=== PATIENT | male | born 1970 | race Caucasian/White ===

== ENCOUNTER → 2017-10-16 | Outpatient (CLI) | payer OTHER ==
--- NOTE | 2017-10-16 10:46 | XR ---
EXAMINATION TYPE: XR foot limited RT DATE OF EXAM: 10/16/2017 CLINICAL HISTORY: Right foot pain worse in first toe. TECHNIQUE: Frontal and lateral images of the right foot are obtained. COMPARISON: None FINDINGS: There is no acute fracture/dislocation evident in the right foot. There is valgus position ing second DIP joint. There is mild to moderate joint space loss with mild peripheral osteophytes at first metatarsal phalangeal joint. The overlying soft tissue appears unremarkable. IMPRESSION: As above.
== END | disposition home or self-care (01) ==
LOC: RADXRMAIN 09:56
PROVIDERS: ATTEND Midwife
DX: M25.774 Osteophyte, right foot (principal); M25.871 Other specified joint disorders, right ankle and foot
CPT/HCPCS: 80061; 84550

== ENCOUNTER 2018-04-04 08:01 | Day surgery (SDC) | payer BC, OTHER ==
[2018-04-02 12:48] VITALS: BMI 30.1
[~2018-04-04 08:01] MED LIST: LACTATED RINGERS 1,000 ML IV SCH; LIDOCAINE 1% 20 ML VIAL (10MG/ML) FOR IV START INTRADERMA PRN
--- NOTE | 2018-04-04 08:10 | P.GSHP ---
History of Present Illness H&P Date: 04/04/18 CHIEF COMPLAINT: Colon screen HISTORY OF PRESENT ILLNESS: The patient is a 48-year-old male who presents for colon screen. Lower endoscopy was offered for further evaluation and management. PAST MEDICAL HISTORY: Please see list. PAST SURGICAL HISTORY: Please see list. MEDICATIONS: Please see list. ALLERGIES: Please see list. SOCIAL HISTORY: No illicit drug use FAMILY HISTORY: No reports of Crohn disease or ulcerative colitis. REVIEW OF ORGAN SYSTEMS: CONSTITUTIONAL: No reports of fevers or chills. PHYSICAL EXAM: VITAL SIGNS: Stable GENERAL: Well-developed pleasant in no acute distress. HEENT: No scleral icterus. Extraocular movements grossly intact. Moist buccal mucosa. NECK: Supple without lymphadenopathy. CHEST: Unlabored respirations. Equal bilateral excursions. CARDIOVASCULAR: Regular rate and rhythm. Distal 2+ pulses. ABDOMEN: Soft, nontender, nondistended. MUSCULOSKELETAL: No clubbing, cyanosis, or edema. ASSESSMENT: 1. Colon screen. PLAN: 1. Recommend proceeding with a lower endoscopy Past Medical History Past Medical History: Hyperlipidemia, Prostate Disorder History of Any Multi-Drug Resistant Organisms: None Reported Past Surgical History: No Surgical Hx Reported Additional Past Surgical History / Comment(s): colonoscopy Past Anesthesia/Blood Transfusion Reactions: No Reported Reaction, Family History of Problems w/ Anesthesia Additional Past Anesthesia/Blood Transfusion Reaction / Comment(s): mother-ponv Smoking Status: Never smoker - Past Family History Father Family Medical History: Deep Vein Thrombosis (DVT) Medications and Allergies Home Medications Medication Instructions Recorded Confirmed Type Atorvastatin [Lipitor] 10 mg PO HS 04/02/18 04/02/18 History Ibuprofen [Motrin] 400 mg PO Q6HR PRN 04/02/18 04/02/18 History Tamsulosin [Flomax] 0.4 mg PO HS 04/02/18 04/02/18 History Allergies Allergy/AdvReac Type Severity Reaction Status Date / Time No Known Allergies Allergy Verified 04/02/18 12:41
[2018-04-04 08:21] VITALS: RESP 16; TEMP 98.4
[2018-04-04] MEDS ORDERED: PROPOFOL 10 MG/ML 20 ML VIAL IV ONE (09:02)
--- NOTE | 2018-04-04 09:27 | P.PCN ---
Date of Procedure: 04/04/18 Description of Procedure: PREOPERATIVE DIAGNOSIS: Colonoscopy screening, high risk screening Personal history of colon polyps POSTOPERATIVE DIAGNOSIS: Colonoscopy screening, high risk screening Personal history of colon polyps Diverticulosis, scattered. OPERATION: Colonoscopy to the ileocecal valve and appendiceal orifice. SURGEON: Mira Morales MD. ANESTHESIA: MAC. INDICATIONS: The patient is a 48-year-old female who presents for colonoscopy screening. He has personal history of colon polyps. Benefits and risks were described and informed consent was obtained. DESCRIPTION OF PROCEDURE: The patient had undergone Gatorade, MiraLAX and Dulcolax prep. He had been brought into the operating room and laid in the left lateral decubitus position. After adequate intravenous sedation, the rectum was examined with 2% lidocaine jelly. No external hemorrhoids were encountered. The rectal tone was within normal limits. No lesions were palpated in the rectal vault. An Olympus colonoscope was advanced until the ileocecal valve and appendiceal orifice were clearly viewed. The prep was excellent with clear visualization of the mucosal folds. The scope was removed with visualization of each mucosal fold. Scattered diverticulosis was encountered. No colonic polyps were found. No evidence of focal colitis was found. Retroflexion of the scope demonstrated no internal hemorrhoids. The colon was desufflated. The patient had tolerated the procedure well. Withdrawal time was over 6 minutes. FINDINGS: No internal hemorrhoids No external prolapsed hemorrhoids. No arteriovenous malformations. No adenomatous polyps. No focal colitis. Scattered diverticulosis RECOMMENDATIONS: Lower endoscopy in 5 years, 2023 Plan - Discharge Summary New Discharge Prescriptions: No Action Tamsulosin [Flomax] 0.4 mg PO HS Atorvastatin [Lipitor] 10 mg PO HS Ibuprofen [Motrin] 400 mg PO Q6HR PRN PRN Reason: Pain Discharge Medication List Atorvastatin [Lipitor] 10 mg PO HS 04/02/18 [History] Ibuprofen [Motrin] 400 mg PO Q6HR PRN 04/02/18 [History] Tamsulosin [Flomax] 0.4 mg PO HS 04/02/18 [History]
[2018-04-04 09:41] VITALS: BP 124/79; PULSE 78
== END 2018-04-04 09:49 | disposition home or self-care (01) ==
LOC: ORWHC2ENDO 08:01
PROVIDERS: ATTEND Surgery Plastic and Reconstructive Surgery
DX: Z12.11 Encounter for screening for malignant neoplasm of colon (principal); K57.30 Diverticulosis of large intestine without perforation or abscess without bleeding; E78.5 Hyperlipidemia, unspecified; Z86.010 Personal history of colon polyps; Z87.438 Personal history of other diseases of male genital organs; Z79.1 Long term (current) use of non-steroidal anti-inflammatories (NSAID); Z79.899 Other long term (current) drug therapy
CPT/HCPCS: J2704; G0105; 45378

== ENCOUNTER 2019-02-17 20:11 | Emergency (ER) | payer BC ==
[2019-02-17] MEDS ORDERED: PANTOPRAZOLE 40 MG/10 ML VIAL IVP STA (20:44)
[2019-02-17] MEDS ORDERED: MORPHINE SULFATE 2 MG/ML SYRINGE IVP ONE (20:45)
[2019-02-17 21:21] LABS: HCT 47.7 % (39.0-53.0); HGB 16.8 gm/dL (13.0-17.5); MCH 30.8 pg (25.0-35.0); MCHC 35.2 g/dL (31.0-37.0); MCV 87.6 fL (80.0-100.0); Mean Platelet Volume 5.6; Platelet Count 312 k/uL (150-450); RBC 5.45 m/uL (4.30-5.90); RDW 12.7 % (11.5-15.5); WBC 9.9 k/uL (3.8-10.6)
[2019-02-17 21:33] LABS: ALT 53 U/L (21-72); AST 39 U/L (17-59); African American GFR (CKD) >90 (>60 ml/min/1.73 sqM); Albumin 4.8 g/dL (3.5-5.0); Alkaline Phosphatase 92 U/L (38-126); Anion Gap 10 mmol/L; Blood Urea Nitrogen 22 mg/dL (9-20); Carbon Dioxide 24 mmol/L (22-30); Chloride 106 mmol/L (98-107); Glucose 95 mg/dL (74-99); Non-African American GFR(CKD) >90 (>60 ml/min/1.73 sqM); Sodium 140 mmol/L (137-145); Total Bilirubin 0.9 mg/dL (0.2-1.3); Total Protein 8.2 g/dL (6.3-8.2)
--- NOTE | 2019-02-17 22:05 | CT ---
EXAMINATION TYPE: CT abdomen pelvis w con DATE OF EXAM: 02/17/2019 COMPARISON: None HISTORY: Epigastric pain, hx hiatal hernia CT DLP: 1243.5 mGycm Automated exposure control for dose reduction was used. TECHNIQUE: Helical acquisition of images was performed from the lung bases through the pelvis. CONTRAST: Performed without Oral Contrast and with IV Contrast, patient injected with 100 mL of Isovue 300. FINDINGS: Lung bases are clear. There is no pleural effusion. There is small hiatal hernia. Liver spleen pancreas gallbladder appear normal. Bile ducts are not dil ated. There is no adrenal mass. Kidneys show satisfactory contrast opacification. There is no hydronephrosi s. There is no retroperitoneal adenopathy. Bladder distends smoothly. There is no inguinal hernia. There is no free fluid in the pelvis. Appendix appears normal. Appendix is posterior. There are a few sigmoid diverticula. There is no mesenteric edema. There is no ascites or free air. There is no evidence of bowel obstruct ion. Lumbar vertebra have normal alignment. Disc spaces are fairly normal. There is no compression fr acture. Bony pelvis is intact. IMPRESSION: THERE IS SMALL HIATAL HERNIA. NO EVIDENCE OF RENAL STONE OR OBSTRUCTION. NO SIGN OF ACUTE ABDOMEN AND PELVIS. NORMAL APPENDIX. THERE ARE A FEW SIGMOID DIVERTICULA WITHOUT EVIDENCE OF DIVERTICULITIS.
--- NOTE | 2019-02-17 22:24 | ED ---
Abdominal Pain HPI - General Chief Complaint: Abdominal Pain Stated Complaint: Difficulty swallowing Time Seen by Provider: 02/17/19 20:30 Source: patient Mode of arrival: ambulatory Limitations: no limitations - History of Present Illness Initial Comments: Patient is a 48-year-old male with history of hiatal hernias presenting to emergency Department with a chief complaint of inability to swallow. She states about 10 years ago he was diagnosed with a hiatal hernia and underwent multiple GI studies. He states occasionally he will have difficulty time swallowing but it only appears to be transient pain goes with a few minutes. Patient reports today at 1800 he took one bite of steak which went down. He safest after his second but he was not able to keep it down and ended up vomiting. He states she has not been able to keep any food down as it gets stuck and he has to throw it up. patient believes there is no foreign body stuck in his esophagus at this time. Patient reports the pain comes and goes. - Related Data Home Medications Medication Instructions Recorded Confirmed Atorvastatin [Lipitor] 10 mg PO HS 04/02/18 04/04/18 Ibuprofen [Motrin] 400 mg PO Q6HR PRN 04/02/18 04/04/18 Tamsulosin [Flomax] 0.4 mg PO HS 04/02/18 04/04/18 Allergies Allergy/AdvReac Type Severity Reaction Status Date / Time No Known Allergies Allergy Verified 02/17/19 20:16 Review of Systems ROS Statement: Those systems with pertinent positive or pertinent negative responses have been documented in the HPI. ROS Other: All systems not noted in ROS Statement are negative. Past Medical History Past Medical History: Hyperlipidemia, Prostate Disorder Additional Past Medical History / Comment(s): hiatal hernia, History of Any Multi-Drug Resistant Organisms: None Reported Past Surgical History: No Surgical Hx Reported Additional Past Surgical History / Comment(s): colonoscopy Past Anesthesia/Blood Transfusion Reactions: No Reported Reaction, Family History of Problems w/ Anesthesia Additional Past Anesthesia/Blood Transfusion Reaction / Comment(s): mother-ponv Past Psychological History: No Psychological Hx Reported Smoking Status: Never smoker Past Alcohol Use History: Occasional Past Drug Use History: None Reported - Past Family History Father Family Medical History: Deep Vein Thrombosis (DVT) General Exam Limitations: no limitations General appearance: alert, in no apparent distress Head exam: Present: atraumatic, normocephalic, normal inspection Eye exam: Present: normal appearance Pupils: Present: normal accommodation ENT exam: Present: normal exam, normal oropharynx, mucous membranes moist, TM's normal bilaterally, normal external ear exam Neck exam: Present: normal inspection, full ROM Respiratory exam: Present: normal lung sounds bilaterally Cardiovascular Exam: Present: regular rate, normal rhythm, normal heart sounds Extremities exam: Present: normal inspection, full ROM Back exam: Present: normal inspection, full ROM Neurological exam: Present: alert, oriented X3, CN II-XII intact, normal gait Psychiatric exam: Present: normal affect, normal mood Skin exam: Present: warm, dry, intact, normal color Course Vital Signs 02/17/19 02/17/19 02/17/19 20:13 22:49 22:58 Temperature 98.1 F Pulse Rate 86 87 80 Respiratory 18 16 16 Rate Blood Pressure 175/114 179/99 136/104 O2 Sat by Pulse 99 99 99 Oximetry Medical Decision Making - Medical Decision Making Patient is a 48-year-old male with history of hiatal hernia is presenting to the emergency department with chief complaint of inability to swallow. CT of the abdomen is showing a small hiatal hernia. Patient given some symptomatically. Patient attempted to drink water but was not able to keep it down. Patient was given Reglan, nitro, glucagon and valium. patient was given soda and he was able to keep the drink down. patient was given pudding and he kept it all down. patient advised to follow up with a GI specialist. Patient advised to return to emergency department if symptoms worsen. I suspect the patient had a foreign body stuck in his distal esophagus causing his symptoms. Strict return parameters were thoroughly discussed with patient was understanding and agreeable. Case discussed with physician. - Lab Data Result diagrams: 02/17/19 20:58 02/17/19 20:58 Lab Results 02/17/19 02/17/19 Range/Units 20:58 20:58 WBC 9.9 (3.8-10.6) k/uL RBC 5.45 (4.30-5.90) m/uL Hgb 16.8 (13.0-17.5) gm/dL Hct 47.7 (39.0-53.0) % MCV 87.6 (80.0-100.0) fL MCH 30.8 (25.0-35.0) pg MCHC 35.2 (31.0-37.0) g/dL RDW 12.7 (11.5-15.5) % Plt Count 312 (150-450) k/uL Sodium 140 (137-145) mmol/L Potassium 4.0 (3.5-5.1) mmol/L Chloride 106 (98-107) mmol/L Carbon Dioxide 24 (22-30) mmol/L Anion Gap 10 mmol/L BUN 22 H (9-20) mg/dL Creatinine 0.82 (0.66-1.25) mg/dL Est GFR (CKD-EPI)AfAm >90 (>60 ml/min/1.73 sqM) Est GFR (CKD-EPI)NonAf >90 (>60 ml/min/1.73 sqM) Glucose 95 (74-99) mg/dL Calcium 10.0 (8.4-10.2) mg/dL Total Bilirubin 0.9 (0.2-1.3) mg/dL AST 39 (17-59) U/L ALT 53 (21-72) U/L Alkaline Phosphatase 92 (38-126) U/L Total Protein 8.2 (6.3-8.2) g/dL Albumin 4.8 (3.5-5.0) g/dL Disposition Clinical Impression: Impacted esophageal foreign body Disposition: HOME SELF-CARE Condition: Stable Instructions (If sedation given, give patient instructions): Esophageal Foreign Body (ED) Additional Instructions: Please follow with a GI specialist. Please return to emergency department if symptoms worsen. Is patient prescribed a controlled substance at d/c from ED?: No Referrals: Socrates Ferreira MD [Primary Care Provider] - 1-2 days Tico Patel MD [STAFF PHYSICIAN] - 1-2 days Time of Disposition: 23:04
[2019-02-17] MEDS ORDERED: METOCLOPRAMIDE 5 MG/ML 2 ML VIAL IVP STA (22:37)
[2019-02-17] MEDS ORDERED: DIAZEPAM 5 MG/ML 2 ML INJ IVP STA (22:38)
[2019-02-17] MEDS ORDERED: GLUCAGON 1 MG/ML VIAL IVP STA (22:38)
[2019-02-17] MEDS ORDERED: NITROGLYCERIN SL TABS 0.4 MG TAB SUBLINGUAL STA (22:39)
[2019-02-17 22:59] VITALS: RESP 16
[2019-02-17 23:50] VITALS: BP 112/67; PULSE 90; TEMP 97.6
== END 2019-02-17 23:30 | disposition home or self-care (01) ==
LOC: EC 20:11
DX: T18.108A Unspecified foreign body in esophagus causing other injury, initial encounter (principal); K44.9 Diaphragmatic hernia without obstruction or gangrene; E78.5 Hyperlipidemia, unspecified; Z79.899 Other long term (current) drug therapy
CPT/HCPCS: 36415; 80053; 85027; 74177; 99284; 96374; 96375 ×4; J1610; J2765; J3360; J2270; C9113; Q9967

== ENCOUNTER → 2019-10-21 | Outpatient (CLI) | payer BC ==
--- NOTE | 2019-10-21 17:13 | CT ---
EXAMINATION TYPE: CT abdomen pelvis w con DATE OF EXAM: 10/21/2019 COMPARISON: 02/17/2019 HISTORY: Left lower quadrant abdominal/pelvic pain. CT DLP: 1114.1 mGycm Automated exposure control for dose reduction was used. CONTRAST: Performed with IV Contrast, patient injected with 100ml mL of Isovue 300. Lung bases are clear. There is no pleural effusion. Heart size is normal. There is small hiatal herni a. Stomach is intact. Liver spleen pancreas gallbladder appear normal. Bile ducts are nondilated. The re is no adrenal mass. Kidneys show satisfactory contrast opacification. There is no hydronephrosis. Ureters are not dilated. There is no retroperitoneal adenopathy. Delayed images show normal renal exc retion. Bladder distends smoothly. There is no inguinal hernia. There is no free fluid in the pelvis. There is some wall thickening and fat stranding around the mid sigmoid colon. There is moderate sigmo id diverticulosis. There are scattered diverticula in the descending colon. Appendix is posterior and appears normal. There is no free air. There is no ascites. There is no evid ence of a bowel obstruction. Lumbar vertebra have normal alignment. There is narrowing of L5-S1 disc with vacuum disc. There is no compression fracture. I see no bony destructive process. Bony pelvis is intact. IMPRESSION: There is sigmoid diverticulitis. No drainable fluid collection. Diverticulitis appears new compared t o old exam.
== END | disposition home or self-care (01) ==
LOC: RADCTMAIN 15:01
PROVIDERS: ATTEND Nurse Practitioner Family
DX: K57.32 Diverticulitis of large intestine without perforation or abscess without bleeding (principal)
CPT/HCPCS: 74177; Q9967